=== PATIENT | female | born 1965 | race Native Hawaiian/Other Pacific Islander ===

== ENCOUNTER 2016-07-23 17:21 | Emergency (ER) | payer OTHER ==
[~2016-07-23] VITALS: Ht 154.9 cm; Wt 65.8 kg
[2016-07-23 18:50] VITALS: BP 152/92; TEMP 97.6
== END 2016-07-23 18:52 | disposition home or self-care (01) ==
LOC: ED 17:21
DX: N39.0 Urinary tract infection, site not specified (principal)
CPT/HCPCS: 81000; 87086; 87088; 99282

== ENCOUNTER 2018-07-09 15:12 | Emergency (ER) | payer OTHER ==
[~2018-07-09] VITALS: Ht 160 cm; Wt 64.4 kg
[~2018-07-09 15:12] MED LIST: MACROBID100 MG PO; METOPROLOL25 M1 PO; POTASSIUM CHLO20 ME1 PO; PYRIDIUM200 MG PO
[2018-07-09 16:00] LABS: PLATELET COUNT 211 K/uL (152-353)
[2018-07-09 16:05] LABS: POTASSIUM 2.5 mmol/L (3.6-5.2)
[2018-07-09 18:40] VITALS: BP 131/75; TEMP 98.2
== END 2018-07-09 18:40 | disposition home or self-care (01) ==
LOC: ED 15:12
PROVIDERS: Emergency Medicine
DX: E87.6 Hypokalemia (principal)
CPT/HCPCS: 80053; 85027; 93005; 99283

== ENCOUNTER 2018-07-18 15:32 | Outpatient (CLI) | payer OTHER | END 2018-07-18 22:25 | disposition home or self-care (01) | LOC: LAB 15:32 | DX: E87.6 Hypokalemia (principal) | CPT/HCPCS: 84132 ==

== ENCOUNTER 2018-11-05 13:54 | Emergency (ER) | payer OTHER ==
[~2018-11-05] VITALS: Ht 154.9 cm; Wt 56.2 kg
[2018-11-05 14:43] LABS: PLATELET COUNT 257 K/uL (152-353)
[2018-11-05 14:50] LABS: POTASSIUM 3.2 mmol/L (3.6-5.2); SODIUM 139 mmol/L (136-145)
[2018-11-05 16:38] VITALS: BP 144/84; TEMP 97.7
== END 2018-11-05 16:42 | disposition home or self-care (01) ==
LOC: ED 13:54
PROVIDERS: Emergency Medicine
DX: R07.89 Other chest pain (principal)
CPT/HCPCS: 80053; 82550; 82553; 84484; 85027; 85379; 93005; 99284

== ENCOUNTER 2021-04-19 09:30 | Outpatient (CLI) | payer OTHER | END 2021-04-19 20:17 | disposition home or self-care (01) | LOC: RAD 09:30 | PROVIDERS: ATTEND Nurse Practitioner Family | DX: R07.81 Pleurodynia (principal); Z91.81 History of falling; R05.9 Cough, unspecified ==

== ENCOUNTER 2021-12-28 11:39 | Emergency (ER) | payer OTHER ==
[~2021-12-28] VITALS: Ht 154.9 cm; Wt 63.5 kg
[2021-12-28 11:52] VITALS: BP 159/82; TEMP 97.4
[2021-12-28 12:21] LABS: PLATELET COUNT 219 K/uL (152-353)
[2021-12-28 12:30] LABS: POTASSIUM 2.9 mmol/L (3.6-5.2)
[2021-12-28 12:41] LABS: PARTIAL THROMBOPLASTIN TIME 20.4 SECONDS (24.5-33.6)
== END 2021-12-28 14:04 | disposition home or self-care (01) ==
LOC: ED 11:39
PROVIDERS: Hospitalist
DX: B37.0 Candidal stomatitis (principal); E86.0 Dehydration; K21.9 Gastro-esophageal reflux disease without esophagitis
CPT/HCPCS: 80053; 82550; 83880; 84484; 85027; 85610; 85730; 93005; 96360; 96374; 99284; J2405

== ENCOUNTER 2022-01-05 08:39 | Emergency (ER) | payer OTHER ==
[~2022-01-05] VITALS: Ht 154.9 cm; Wt 63.5 kg
[2022-01-05 09:32] LABS: PLATELET COUNT 246 K/uL (152-353)
[2022-01-05 09:35] LABS: POTASSIUM 4.8 mmol/L (3.6-5.2)
[2022-01-05] MEDS ORDERED: ONDA4TAB3 PO (10:47)
[2022-01-05] MEDS ORDERED: METRONIDAZOL500 MG PO (10:47)
[2022-01-05 12:16] VITALS: BP 121/85; TEMP 97
== END 2022-01-05 12:16 | disposition home or self-care (01) ==
LOC: ED 08:39
PROVIDERS: Emergency Medicine
DX: K52.89 Other specified noninfective gastroenteritis and colitis (principal)
CPT/HCPCS: 36415; 80053; 81002; 81015; 83690; 84443; 84484; 85027; 93005; 96360; 96374; 99284; J2405

== ENCOUNTER 2022-06-06 11:16 | Outpatient (CLI) | payer OTHER ==
[~2022-06-06 11:16] MED LIST changes: +METRONIDAZOL500 MG PO; +ONDA4TAB3 PO
[2022-06-06 11:48] LABS: PLATELET COUNT 201 K/uL (152-353)
[2022-06-06 12:46] LABS: POTASSIUM 3.7 mmol/L (3.6-5.2)
== END 2022-06-06 19:00 | disposition home or self-care (01) ==
LOC: RAD 11:16
PROVIDERS: ATTEND Nurse Practitioner Family
DX: M54.17 Radiculopathy, lumbosacral region (principal)
CPT/HCPCS: 36415; 80053; 82150; 83690; 85027

== ENCOUNTER 2022-06-13 09:05 | Outpatient (CLI) | payer OTHER | END 2022-06-13 19:51 | disposition home or self-care (01) | LOC: US 09:05 | PROVIDERS: ATTEND Nurse Practitioner Family | DX: M54.17 Radiculopathy, lumbosacral region (principal); R10.11 Right upper quadrant pain | CPT/HCPCS: 82272; 83630; 87015; 87045; 87324; 87328; 87329; 87449; 87899 ==

== ENCOUNTER 2022-11-08 17:53 | Outpatient (CLI) | payer OTHER | END 2022-11-08 19:03 | disposition home or self-care (01) | LOC: RAD 17:53 | PROVIDERS: ATTEND Nurse Practitioner Family | DX: K59.00 Constipation, unspecified (principal) ==

== ENCOUNTER 2023-02-06 09:25 | Outpatient (CLI) | payer OTHER | END 2023-02-06 19:49 | disposition home or self-care (01) | LOC: MRI 09:25 | PROVIDERS: ATTEND Physician Assistant | DX: M47.896 Other spondylosis, lumbar region (principal) ==

== ENCOUNTER 2023-03-01 09:41 | Outpatient (CLI) | payer OTHER | END 2023-03-01 19:46 | disposition home or self-care (01) | LOC: CT 09:41 | PROVIDERS: ATTEND Nurse Practitioner Family | DX: M54.59 Other low back pain (principal) ==